=== PATIENT | female | born 1955 | race African-American/Black ===

== ENCOUNTER 2018-10-18 16:38 | Emergency (ER) | payer OTHER ==
[~2018-10-18] VITALS: Ht 165.1 cm; Wt 100.7 kg
[2018-10-18 17:08] VITALS: BP 127/79
[2018-10-18] MEDS ORDERED: ACETAMINOPHEN/CODEINE#3 (300/30mg) TAB PO ONE (21:30)
[2018-10-18] MEDS ORDERED: DexAMETHasone SOD PHOS 10MG/1ML VIAL INJ IM ONE (21:30)
== END 2018-10-18 22:15 | disposition home or self-care (01) ==
LOC: ER 16:38
DX: M23.91 Unspecified internal derangement of right knee (principal)
CPT/HCPCS: 29505; 73562; 96372; 99283; J1100

== ENCOUNTER 2021-08-13 07:47 | Emergency (ER) | payer OTHER ==
[~2021-08-13] VITALS: Ht 165.1 cm; Wt 89.8 kg
[2021-08-13 08:37] VITALS: BP 143/89
[2021-08-13] MEDS ORDERED: KETOROLAC TROMETH 60MG/2ML VIAL IM ONE (08:45)
[2021-08-13] MEDS ORDERED: IBUP800T27 PO (09:26)
[2021-08-13] MEDS ORDERED: METH750T22 PO (09:26)
== END 2021-08-13 09:38 | disposition home or self-care (01) ==
LOC: ER 07:47
DX: S29.011A Strain of muscle and tendon of front wall of thorax, initial encounter (principal); E03.9 Hypothyroidism, unspecified; E78.5 Hyperlipidemia, unspecified; Z79.1 Long term (current) use of non-steroidal anti-inflammatories (NSAID); Z79.899 Other long term (current) drug therapy; W01.0XXA Fall on same level from slipping, tripping and stumbling without subsequent striking against object, initial encounter; Y93.89 Activity, other specified; Y92.89 Other specified places as the place of occurrence of the external cause; Y99.8 Other external cause status
CPT/HCPCS: 71101; 96372; 99283; J1885